=== PATIENT | female | born 1995 | race Hispanic/Latino ===

== ENCOUNTER → 2017-08-24 | Day surgery (SDC) | payer OTHER ==
[~2017-08-24] MED LIST: AMPICILLIN SOD IV ONE; BELLADONNA/OPIUM 60 MG SUPP PR ONE; DEXAMETHASONE SOD PHOS INJ 4 MG/ML VIAL ONE; FENTANYL CITRATE/PF 100MCG/2 ML INJ ONE; GENTAMICIN 80MG/NS 100 ML 100 ML IV ONE; IOPAMIDOL 610MG/1ML 300 MG/ML VIAL IV ONE; IOTHALAMATE MEGLUMINE 17.20% 250 ML BTL ONE; LIDOCAINE HCL 2% LOCAL INJ 5 ML SDV VIAL INJ ONE; MIDAZOLAM HCL 2 MG/2 ML VIAL ONE; ONDANSETRON HCL INJ 2 MG/ML VIAL ONE; PROPOFOL IV EMULSION 10 MG/ML 20 ML VIAL ONE; SEVOFLURANE INHAL SOLN 250 ML PEN BTL ONE; SOD CHL 0.9% IV ONE
--- OUTSIDE RECORDS SUMMARY | 2017-08-24 11:41 | XMS REPORT ---
Author Author [facility] Address Unknown Phone Unavailable Care Team Providers Care Land Planner Name Role Phone RODY PORTILLO Unavailable Unavailable Problems This patient has no known problems. Allergies, Adverse Reactions, Alerts This patient has no known allergies or adverse reactions. Medications This patient has no known medications. Results Test Description Test Time Test Comments Text Results Atomic Results Result Comments MRI ABDOMEN WOW [place] [address] Patient Name: RADHA COLEMAN MR #: [id number] : 1995 Age/Sex: 22/F Req #: [id number] Adm Physician: RODY PORTILLO MD Ordered by: LORETA LAL MD Report #: [id number] Location: MED/SURG2 Room/Bed: [facility] Procedure: [id number] MRI/MRI ABDOMEN WOW Exam Date: 05/12/17 Exam Time: 1200 REPORT STATUS: Signed PROCEDURE: MRI ABDOMEN WOW TECHNIQUE: Multiple and multisequence evaluation of the abdomen before and after contrast. Axial dual echo, T2, diffusion weighted sequences, and post contrast dynamic sequences. Coronal fiesta and SSFSE. Contrast: 7 mL Gadavist COMPARISON: None. INDICATIONS: Right kidney followup. Abnormal CT kidney. FINDINGS: LIVER: No hepatic signal abnormality. No focal hepatic lesions. BILIARY: No ductal dilatation or filling defect. PANCREAS: No mass or ductal dilatation. SPLEEN: No splenomegaly. ADRENALS: No nodules. KIDNEYS: No hydronephrosis. Left kidney is slightly enlarged compared to left kidney and mildly increased in signal on T2-weighted sequences. * 1.9 x 1.7 cm ill-defined lesion in the posterior interpolar region left kidney (series 5 image 20). There is mild peripheral T2 hyperintensity. On postcontrast there is a 0.8 x 0.9 cm central non-enhancement without definite T1 or T2 signal abnormality. This lesion demonstrates restricted diffusion especially this central component. This correlates with the 2 [address] lesion found on [address] abdomen and pelvis 05/11/2017. * Focal wedge-shaped heterogeneity in the lateral interpolar region of the left kidney (series 11 image 169). Subtle increased T2 signal (series 528). * Subtle heterogeneity in the inferior pole of the left kidney with surrounding perinephric fat stranding. There is associated 1.9 cm restricted diffusion (series 6 image 47). PERITONEUM / RETROPERITONEUM: No upper abdominal free fluid. LYMPH NODES: No upper abdominal lymphadenopathy. VESSELS: Unremarkable. BONES AND SOFT TISSUES : Unremarkable. IMPRESSION: Findings consistent with improving pyelonephritis in the left kidney with a 0.9 cm microabscess (this correlates with previous 2 cm lesion). Dictated by: Idalia Mcneal M.D. on 05/12/2017 at 13:35 Electronically approved by: Idalia Mcneal M.D. on 05/12/2017 at 13:35 Dictated By: IDALIA MCNEAL MD 133 Transcribed By: EVELYN on 05/12/17 1335 COPY TO: LORETA LAL MD CT ABDOMEN/PELVIS [place] [address] Patient Name: RADHA COLEMAN MR #: [id number] : 1995 Age/Sex: 22/F Req # : [id number] Adm Physician: Ordered by: LUIS MIGUEL HAMILTON Report #: [id number] Location: Room/Bed: Procedure: [id number] CT/CT ABDOMEN/PELVIS W Exam Date: Exam Time: REPORT STATUS: Signed PROCEDURE: CT ABDOMEN AND PELVIS WITH CONTRAST COMPARISON: None. INDICATIONS: Left lower quadrant pain TECHNIQUE: Routine protocol Volumetric CT abdomen and pelvis after administration of 100 mL Isovue-370 intravenous contrast and 900 mL dilute positive enteric contrast. Multiplanar reformatted images. DLP: 411.05 FINDINGS: Clear lung bases. No pleural effusions. Normal heart size. Liver: Normal Gallbladder: Normal Pancreas: Normal Spleen: Normal Adrenal glands: Normal Ureters and urinary bladder: Normal Uterus and adnexa : Normal. Indwelling IUCD. Kidneys: Right: Normal Left: Ill-defined 2 x 2.5 x 2 cm focus of relatively decreased enhancement (image 84, series 300 and image 30, series 2) at the posterior margin of the left mid renal segment. Secondary focus of decreased renal parenchymal enhancement at the medial aspect of the inferior pole (image 36, series 2). Subtle yossi-nephric inflammation/fat stranding (for example, image 38, series 2). Bowel: Normal. Normal appendix. Peritoneum: Normal Vasculature: Normal. Single left renal vein and artery. Lymph nodes: Subcentimeter left periaortic nodes ( image 37 and 40, series 2). Skeleton: Normal Soft tissues: CONCLUSION: Multifocal decreased parenchymal enhancement in the left kidney with adjacent inflammation suggesting pyelonephritis. No evidence of obstruction. If the patient does not have clinical symptoms of urinary tract infection renal protocol MRI would be recommended for characterization. Dictated by: Jamarcus Nunez M.D. on 05/11/2017 at 17:09 Electronically approved by: Jamarcus Nunez M.D. on 05/11/2017 at 17:09 Dictated By: JAMARCUS NUNEZ MD 08 Transcribed By: EVELYN on 05/11/171708 COPY TO: LUIS MIGUEL HAMILTON
[2017-08-24 12:41] LABS: BASOPHILS # (AUTO) 0.1 (0.0-0.1); BASOPHILS % 0.7 % (0.0-1.0); EOSINOPHILS # (AUTO) 0.3 (0.0-0.4); EOSINOPHILS % 3.1 % (0.0-6.0); HEMATOCRIT 40.5 % (34.2-44.1); HEMOGLOBIN 13.5 g/dL (12.0-16.0); LYMPHOCYTES # (AUTO) 2.1 (1.0-3.2); LYMPHOCYTES % 21.3 % (18.0-39.1); MEAN CORPUSCULAR HEMOGLOBIN 28.8 pg (28-32); MEAN CORPUSCULAR HGB CONC 33.3 g/dL (31-35); MEAN CORPUSCULAR VOLUME 86.4 fL (81-99); MONOCYTES # (AUTO) 0.6 (0.2-0.8); NEUTROPHILS # (AUTO) 6.7 (2.1-6.9); NEUTROPHILS % 68.4 % (38.7-80.0); PLATELET COUNT 270 x10e3/uL (140-360); RED BLOOD COUNT 4.69 x10e6/uL (3.6-5.1); RED CELL DISTRIBUTION WIDTH 13.3 % (11.7-14.4)
[2017-08-24 12:55] LABS: ANION GAP 12.7 mmol/L (8-16); BLOOD UREA NITROGEN 9 mg/dL (7-26); BUN/CREATININE RATIO 14 (6-25); CARBON DIOXIDE 19 mmol/L (22-29); CHLORIDE 107 mmol/L (98-107); CREATININE, SERUM 0.65 mg/dL (0.57-1.11); EST GLOMERULAR FILTRATION RATE > 60 ML/MIN (60-); GLUCOSE 85 mg/dL (74-118); POTASSIUM 3.7 mmol/L (3.5-5.1); SODIUM 135 mmol/L (136-145)
--- NOTE | 2017-10-01 05:17 | Operative Report ---
DATE OF PROCEDURE: August 24, 2017 PREOPERATIVE DIAGNOSIS: Urinary tract infections. POSTOPERATIVE DIAGNOSES 1. Urinary tract infections. 2. Minimal cystocele. OPERATIONS PERFORMED 1. Injection procedure for cystography and performance of a cystogram (separate procedure performed to rue out sphincteric reflux. 2. Cystourethroscopy with bilateral ureteral catheterization and retrograde ureteropyelography (separate procedure performed to evaluate the upper tracts). 3. Interpretation of retrograde ureteropyelography. 4. Interpretation of cystography. 5. Supervision of fluoroscopy. No radiologist present. 6. Pelvic examination under anesthesia. ANESTHESIA: General. COMPLICATIONS: None. CLINICAL SUMMARY: Jodee Tran is a complicated 22-year-old woman with recurrent urinary tract infections. The patient has had a severe urinary tract infection, more specifically a renal abscess that required intervention. The patient is brought to the operating room today for evaluation. She is aware of the risks of bleeding, infection, injury to adjacent structures, need for additional procedures, and elected to proceed. OPERATIVE PROCEDURE IN DETAIL: Informed consent was verified. Jodee Tran was properly identified and taken to the operating room and placed on the cystoscopy table in the supine position. Anesthesia was uneventfully begun. The patient was then carefully and gently repositioned in the dorsal lithotomy position with all pressure points well-padded. Her genitalia were prepared and draped in the usual sterile fashion. The 22.5-[place] cystoscope sheath with obturator in place was atraumatically inserted into the patient's urethra and the bladder was drained. Panendoscopy of the urinary bladder revealed minimal trabeculations. No tumors. No stones and no diverticula. Normally positioned and configured ureteral orifices were identified. Contrast was injected via the cystoscope and performed a cystogram. Interpretation of cystography. Contrast was injected in a retrograde fashion via the cystoscope. There was no evidence of vesicoureteric reflux. A ureteral catheter was used to cannulate each ureter, and retrograde ureteropyelograms were performed. Interpretation of retrograde ureteropyelography. Contrast was instilled in a retrograde fashion bilaterally. There were no tumors. No stones and no diverticula. Unobstructed drainage was observed bilaterally fluoroscopically. The patient's bladder was then drained. The cystoscope was withdrawn. Pelvic examination under anesthesia revealed a very minimal cystocele. No rectocele. No abnormal palpable pelvic masses could be appreciated. The patient was then uneventfully reversed from anesthesia, and taken to the recovery room in stable condition. There were no complications to the procedure. She tolerated the procedure well. Explicit postoperative instructions were given. Will follow the patient up in the office. Job#: [id number] RI cc:ELIA MARTI MD
== END | disposition home or self-care (01) ==
LOC: OR 11:38
PROVIDERS: ATTEND Urology
DX: N10 Acute pyelonephritis (principal); N81.10 Cystocele, unspecified; N23 Unspecified renal colic; N32.89 Other specified disorders of bladder; F17.200 Nicotine dependence, unspecified, uncomplicated; Z68.30 Body mass index [BMI] 30.0-30.9, adult
CPT/HCPCS: 36415; 52005; 74420; 80048; 81025; 85025; J0290; J1100; J1580; J2001; J2250; J2405; Q9958; Q9967

== ENCOUNTER → 2017-08-31 | Outpatient (CLI) | payer OTHER ==
[~2017-08-31] MED LIST changes: -AMPICILLIN SOD IV ONE; -BELLADONNA/OPIUM 60 MG SUPP PR ONE; -DEXAMETHASONE SOD PHOS INJ 4 MG/ML VIAL ONE; -FENTANYL CITRATE/PF 100MCG/2 ML INJ ONE; -GENTAMICIN 80MG/NS 100 ML 100 ML IV ONE; +IOPAMIDOL 370 MG/ML 200 ML INFUS..BTL INJ ONE; -IOPAMIDOL 610MG/1ML 300 MG/ML VIAL IV ONE; -IOTHALAMATE MEGLUMINE 17.20% 250 ML BTL ONE; -LIDOCAINE HCL 2% LOCAL INJ 5 ML SDV VIAL INJ ONE; -MIDAZOLAM HCL 2 MG/2 ML VIAL ONE; -ONDANSETRON HCL INJ 2 MG/ML VIAL ONE; -PROPOFOL IV EMULSION 10 MG/ML 20 ML VIAL ONE; -SEVOFLURANE INHAL SOLN 250 ML PEN BTL ONE; -SOD CHL 0.9% IV ONE; +SODIUM CHLORIDE 0.9% 50ML 50 ML ONE
--- NOTE | 2017-08-31 14:17 | Diagnostic Imaging Report ---
PROCEDURE:CT ABDOMEN \T\ PELVIS W/WO CONTRAST COMPARISON:MRI abdomen 05/12/17, CT abdomen 05/11/17. INDICATIONS:RENAL MASS, RENAL COLIC TECHNIQUE:Multidetector imaging of the abdomen and pelvis was performed from the level of the diaphragm to below the pubic symphysis pre- and post IV administration of 100 cc Isovue 370. Scanning during precontrast, early, and delayed phases was performed. Coronal and sagittal multiplanar reformations were obtained. DLP: 1373.2 mGy-cm FINDINGS: Lung bases: Clear. The visualized portion of the mediastinum is normal. Liver: Normal attenuation without mass. Gallbladder: Present and normal in appearance. No biliary ductal dilatation. Pancreas: Normal attenuation without mass or ductal dilatation. Spleen: Normal in size. No evidence of mass. Adrenals: No mass. Kidneys: Right kidney: No evidence of calculus. Normal enhancement without mass. No hydronephrosis. No filling defect in the collecting system. Left kidney: No evidence of calculus. Normal enhancement. No evidence of mass. There is a small scar in the posterior interpolar cortex at the site of the microabscess on previous exams. No hydronephrosis. No filling defect in the collecting system. Vasculature: The aorta is normal in diameter. There is conventional anatomy of the celiac arteries. Single artery supplies each kidney. IVC: Normal. Lymph nodes: No lymphadenopathy. Pelvis: The bladder is well-distended and normal in appearance. The ureters are normal in diameter throughout the course without filling defect in the opacified portions. The uterus is present contains an intrauterine device. There are no adnexal masses. Lymph nodes: No lymphadenopathy. No free fluid or fluid collection. Bones: Unremarkable for age. CONCLUSION: Small scar in the left kidney, likely the sequela of focal infection. No renal calculus or cortical mass in either kidney. The remainder of the abdomen/pelvis is normal. Dictated by: Dominic Guzman M.D. on 08/31/2017 at 14:27 Electronically approved by: Dominic Guzman M.D. on 08/31/2017 at 14:27
== END ==
LOC: CT 12:17
PROVIDERS: ATTEND Urology
DX: N23 Unspecified renal colic (principal)
CPT/HCPCS: 74178; 81025; Q9967

== ENCOUNTER → 2019-06-02 | Day surgery (SDC) | payer OTHER ==
[2019-06-01 12:51] LABS: BASOPHILS # (AUTO) 0.1 (0.0-0.1); BASOPHILS % 0.9 % (0.0-1.0); EOSINOPHILS # (AUTO) 0.3 (0.0-0.4); EOSINOPHILS % 3.5 % (0.0-6.0); HEMATOCRIT 40.2 % (34.2-44.1); HEMOGLOBIN 13.4 g/dL (12.0-16.0); LYMPHOCYTES # (AUTO) 2.2 (1.0-3.2); LYMPHOCYTES % 25.4 % (18.0-39.1); MEAN CORPUSCULAR HEMOGLOBIN 29.5 pg (28-32); MEAN CORPUSCULAR HGB CONC 33.3 g/dL (31-35); MEAN CORPUSCULAR VOLUME 88.5 fL (81-99); MONOCYTES # (AUTO) 0.6 (0.2-0.8); NEUTROPHILS # (AUTO) 5.4 (2.1-6.9); NEUTROPHILS % 62.8 % (38.7-80.0); PLATELET COUNT 255 x10e3/uL (140-360); RED BLOOD COUNT 4.54 x10e6/uL (3.6-5.1); RED CELL DISTRIBUTION WIDTH 12.4 % (11.7-14.4)
[~2019-06-02] MED LIST changes: +ACETAMINOPHEN 1000 MG/100 ML 100 ML IV ONE; +BUPIVACAINE 0.25%/EPI 30ML SDV INJ ONE; +DEXAMETHASONE SOD PHOS INJ 4 MG/ML VIAL ONE; +FENTANYL CITRATE/PF 100MCG/2 ML INJ ONE; +HYDROCODONE/APAP 7.5MG-325MG 1 EA TAB ONE; -IOPAMIDOL 370 MG/ML 200 ML INFUS..BTL INJ ONE; +KETOROLAC TROMETHAMINE 30 MG/ML VIAL ONE; +LIDOCAINE HCL 2% LOCAL INJ 5 ML SDV VIAL INJ ONE; +MIDAZOLAM HCL 2 MG/2 ML VIAL ONE; +ONDANSETRON HCL INJ 2MG/ML 2ML 2 MG/ML VIAL ONE; +PROPOFOL IV EMULSION 10 MG/ML 20 ML VIAL ONE; +SEVOFLURANE INHAL SOLN 250 ML PEN BTL ONE; -SODIUM CHLORIDE 0.9% 50ML 50 ML ONE; +SUCCINYLCHOLINE 200 MG/10 ML SYR ONE
[2019-06-02 12:50] VITALS: BP 122/91
--- NOTE | 2019-06-02 18:48 | Operative Report ---
DATE OF PROCEDURE: 06/02/2019 SURGEON: Darci Arellano MD POSTOPERATIVE DIAGNOSIS: Mass of the left anterior ankle. POSTOPERATIVE DIAGNOSIS: Mass of the left anterior ankle. OPERATION PERFORMED: Resection of mass of the left anterior ankle. ANESTHESIA: General. COMPLICATIONS: None. ESTIMATED BLOOD LOSS: Minimal. DESCRIPTION OF PROCEDURE: With the patient lying in bed in the supine position under good general anesthesia, the left leg was prepped with Betadine solution and draped in the usual manner. The area overlying the mass in the left anterior ankle was then infiltrated with 0.25% Marcaine with epinephrine. An incision was made. It was carried down through the skin and immediately entering the subcutaneous tissue what appeared to be a mass consistent with fat necrosis and just a lot of hard tissue, likely secondary to the blunt trauma that the patient had a few months ago. There was no hematoma in the area. This was all just subcutaneous soft tissue injury. All of the abnormal fat and tissue was then slowly and carefully resected. Bleeding points were either electrocoagulated or ligated with 3-0 Vicryl and all the damaged tissue was removed all the way down to the fascia. Hemostasis was ascertained and then the wound was then closed in layers. The subcutaneous tissue was approximated with 4-0 Vicryl and the skin was closed with subcuticular 5-0 Vicryl. Benzoin, Steri-Strips, and dressings were applied. The sponge, lap, and needle count was correct. The patient tolerated the procedure well and returned to the recovery room in stable condition. MD ALIYAH Little/MODL /[id number]
== END | disposition home or self-care (01) ==
LOC: OR 07:22
PROVIDERS: ATTEND Surgery
DX: R22.42 Localized swelling, mass and lump, left lower limb (principal); R42 Dizziness and giddiness; Z01.812 Encounter for preprocedural laboratory examination
CPT/HCPCS: 27618; 36415; 81025; 85025; 88304; J0131; J1100; J1885; J2001; J2250; J2405; J2704; J3010

== ENCOUNTER 2019-09-12 07:17 | Observation (INO) | payer OTHER ==
[~2019-09-12] VITALS: Ht 162.6 cm; Wt 72.6 kg
[2019-09-12] MEDS ORDERED: CEFAZOLIN SOD 1 GM/NS 50ML 50 ML IV ONE (07:48)
[2019-09-12] MEDS ORDERED: ACETAMINOPHEN 1000 MG/100 ML 100 ML IV ONE (09:37)
[2019-09-12] MEDS ORDERED: PROMETHAZINE HCL (IM) 25 MG/ML VIAL IM PRN (10:30)
[2019-09-12] MEDS ORDERED: DIPHENHYDRAMINE HCL INJ 50 MG/ML VIAL IM/IV PRN (10:30)
[2019-09-12] MEDS ORDERED: HYDROCODONE/APAP 5MG-325MG TAB PO PRN (10:30)
[2019-09-12] MEDS ORDERED: ACETAMINOPHEN 650 MG SUPP PR PRN (10:30)
[2019-09-12] MEDS ORDERED: DOCUSATE SODIUM 100 MG CAP PO PRN (10:30)
[2019-09-12] MEDS ORDERED: MEPERIDINE HCL INJ 25 MG/ML VIAL ONE (10:31)
[2019-09-12] MEDS ORDERED: FENTANYL CITRATE/PF 100MCG/2 ML INJ ONE ×2 (10:49→19:39)
--- NOTE | 2019-09-12 13:00 | Operative Report ---
DATE OF PROCEDURE: 09/12/2019 SURGEON: Prasanth Antony MD [employer] LAB[employer]ER: Zachariah Saavedra, certified PA. PREOPERATIVE DIAGNOSIS: Segmental right humeral shaft fracture. POSTOPERATIVE DIAGNOSIS: Segmental right humeral shaft fracture. PROCEDURE: Open reduction and internal fixation of right humeral shaft fracture. INDICATIONS: The patient is a 24-year-old lady, who sustained a fracture of her right humeral shaft. This has a small segmental fragment. The findings and options have been discussed. She was initially treated by another physician, who wanted to treat this conservatively. As this is a transverse fracture, it was not showing signs of healing when she presented for second opinion. We offered the option of surgical stabilization. All the risks and benefits were explained. She stated she understood and wished to proceed. PROCEDURE IN DETAIL: The patient was brought to the operating room and placed under general anesthetic. She received prophylactic antibiotics and a regional block in the holding area. She was positioned in the left lateral decubitus position. Her right upper extremity was prepped and draped in a sterile manner. A preoperative time-out was performed. A posterior triceps splitting approach was made to the humeral shaft. Hemostasis was obtained with electrocautery. Self-retaining retractors were placed. Initial attention was directed towards dissecting out the radial neurovascular bundle. This was protected with a quarter-inch [place] drain. The fracture site was carefully exposed. There was gross motion at the fracture site, but there was some evidence of early callus formation stabilizing the butterfly fragment. Once the fracture was carefully exposed, a [employer] 8-hole 4.5 mm plate was placed across the fracture site. Approximately, two holes were centered over the fracture. A combination of compression and locking screws were used to anchor the proximal and distal portions of the plate. Excellent bone quality was encountered. Good fixation was felt to be obtained. I tried to perform minimal dissection and destabilization of the fracture site. A reduction clamp had been used to dramatically improve the alignment. However, I did not want to take down the early healing completely. This resulted in a fraction of step-off in the alignment of the fracture. Intraoperative x-rays confirmed satisfactory positioning of the hardware and alignment of the fracture. The wound was thoroughly irrigated. The [place] drain was removed from the radial neurovascular bundle. The fascia was closed with interrupted 2-0 Vicryl. The skin was closed with subcuticular Vicryl, Mastisol, and Steri-Strips. A sterile bandage and a posterior splint were applied. Estimated blood loss was about 50 mL. All needle and sponge counts were correct. She was extubated and transported to the recovery room in stable condition. Prasanth Antony MD DR/LUCIE /[id number]
[2019-09-12] MEDS ORDERED: HYDROMORPHONE 1MG/1ML INJ ONE (13:46)
[2019-09-12 14:20] VITALS: BP 115/76
[2019-09-12] MEDS ORDERED: SODIUM CHLORIDE 0.9% 250ML 250 ML ONE (14:33)
[2019-09-12] MEDS: CEFAZOLIN SOD 1 GM/NS 50ML 50 ML IV SCH ×2 (14:42→21:20)
[2019-09-12] MEDS: ACETAMINOPHEN 1000 MG/100 ML IV SCH ×2 (14:45→19:37)
[2019-09-12] MEDS: HYDROCODONE/APAP 7.5MG-325MG 1 EA TAB PO PRN ×3 (15:20→23:47)
[2019-09-12] MEDS: KETOROLAC TROMETHAMINE 30 MG/ML VIAL IV PRN ×2 (15:20→22:04)
[2019-09-12 15:50] VITALS: BP 115/76
[2019-09-12] MEDS: CELECOXIB 200 MG CAP PO SCH (17:49)
[2019-09-12] MEDS: ASPIRIN 325 MG TAB PO SCH (17:49)
[2019-09-12] MEDS: SODIUM CHLORIDE 0.9% 1000ML 1,000 ML IV SCH ×2 (17:49→20:19)
[2019-09-12] MEDS ORDERED: ROPIVACAINE 0.5% 5 MG/ML 30 ML SDV ONE (18:19)
[2019-09-12] MEDS ORDERED: LIDOCAINE HCL 2% LOCAL 20 ML VIAL ONE (18:19)
--- NOTE | 2019-09-12 19:00 | NUR ---
Received the patient in report.allert oriented.no resp.distress. pain voiced 5/10.right arm sling in place.bed locked and in lowest position.phone and call light within reach.instructed to call for assistance as needed.
[2019-09-12] MEDS ORDERED: MIDAZOLAM HCL 2 MG/2 ML VIAL ONE (19:39)
[2019-09-12] MEDS ORDERED: ONDANSETRON HCL INJ 2MG/ML 2ML 2 MG/ML VIAL ONE (19:45)
[2019-09-12] MEDS ORDERED: SEVOFLURANE INHAL SOLN 250 ML PEN BTL ONE (19:45)
[2019-09-12] MEDS ORDERED: PROPOFOL IV EMULSION 10 MG/ML 20 ML VIAL ONE (19:45)
[2019-09-12] MEDS ORDERED: LIDOCAINE HCL 2% LOCAL INJ 5 ML SDV VIAL INJ ONE (19:45)
[2019-09-12] MEDS ORDERED: KETOROLAC TROMETHAMINE 30 MG/ML VIAL ONE (19:45)
[2019-09-12] MEDS ORDERED: DEXAMETHASONE SOD PHOS INJ 4 MG/ML VIAL ONE (19:45)
[2019-09-12] MEDS ORDERED: CEFAZOLIN SOD 1 GM VIAL ONE (19:45)
[2019-09-12] MEDS: ONDANSETRON HCL INJ 2MG/ML 2ML 2 MG/ML VIAL IV PRN (19:48)
[2019-09-12 20:00] VITALS: BP 113/90
[2019-09-12 20:45] VITALS: BP 115/76
[2019-09-12] MEDS ORDERED: ZOLPIDEM TARTRATE 5 MG TAB PO PRN (21:00)
[2019-09-13] VITALS: BP 118/79
[2019-09-13] MEDS: ACETAMINOPHEN 1000 MG/100 ML IV SCH ×2 (02:31→07:49)
[2019-09-13 04:00] VITALS: BP 128/93
[2019-09-13] MEDS: KETOROLAC TROMETHAMINE 30 MG/ML VIAL IV PRN ×2 (04:09→10:09)
[2019-09-13] MEDS: HYDROCODONE/APAP 7.5MG-325MG 1 EA TAB PO PRN ×2 (04:25→08:21)
[2019-09-13] MEDS: CEFAZOLIN SOD 1 GM/NS 50ML 50 ML IV SCH (05:40)
[2019-09-13] MEDS: SODIUM CHLORIDE 0.9% 1000ML 1,000 ML IV SCH (06:19)
--- NOTE | 2019-09-13 07:00 | NUR ---
BED SIDE SHIFT REPORT GIVEN TO ONCOMING RN.STABLE CONDITION.
--- NOTE | 2019-09-13 07:00 | NUR ---
Bedside report done. pt is alert resting in bed, no s/s of distress. call light within reach and instructed pt to call RN for help. bed safety in place
[2019-09-13] MEDS: ASPIRIN 325 MG TAB PO SCH (07:49)
[2019-09-13] MEDS: CELECOXIB 200 MG CAP PO SCH (07:49)
[2019-09-13 08:15] VITALS: BP 106/69
[2019-09-13] MEDS: ONDANSETRON HCL INJ 2MG/ML 2ML 2 MG/ML VIAL IV PRN (08:26)
[2019-09-13 08:37] VITALS: BP 106/69
[2019-09-13] MEDS ORDERED: NORCO 7.5-3251 EACH PO (09:18)
[2019-09-13] MEDS ORDERED: ACETAMINOPHEN 1000 MG/100 ML IV PRN (10:30)
== END 2019-09-13 11:32 | disposition home or self-care (01) ==
LOC: OR 07:17 → PACU V 10:21 → MED/SURG 14:10
PROVIDERS: ADMIT Specialist; ATTEND Specialist
DX: S42.351A Displaced comminuted fracture of shaft of humerus, right arm, initial encounter for closed fracture (principal); W19.XXXA Unspecified fall, initial encounter; Y92.008 Other place in unspecified non-institutional (private) residence as the place of occurrence of the external cause
CPT/HCPCS: 24516; 81025; 97116; 97161; 97530; C1713 ×4; G0378 ×2; J0131 ×2; J0690 ×3; J1100; J1170; J1885 ×2; J2001 ×2; J2175; J2250; J2405 ×2; J2550; J2704; J2795; J3010; J7030; J7050